=== PATIENT | female | born 1980 | race American Indian/Alaskan Native ===

== ENCOUNTER 2020-01-25 21:40 | Emergency (ER) | payer SELFPAY ==
[2020-01-25 22:10] VITALS: BP 110/62
--- NOTE | 2020-01-25 22:36 | XRay Report ---
CHEST 2 VIEWS INDICATION / CLINICAL INFORMATION: right chestpain. - COMPARISON: None available. FINDINGS: SUPPORT DEVICES: None. HEART / MEDIASTINUM: No significant abnormality. LUNGS / PLEURA: No significant pulmonary or pleural abnormality. No pneumothorax. ADDITIONAL FINDINGS: No significant additional findings. IMPRESSION: 1. No acute findings. Signer Name: Sunday Gillespie MD Signed: 01/25/2020 10:32 PM Workstation Name: [id number]
--- NOTE | 2020-01-26 00:57 | Emergency Department Report ---
- General Chief Complaint: Upper Respiratory Infection Stated Complaint: POSS LUNG INFECTION Time Seen by Provider: 01/25/20 23:56 Source: patient Mode of arrival: Ambulatory Limitations: No Limitations - History of Present Illness Initial Comments: 39-year-old -[place] female smoker Complaint: cough, rhinorrhea -: week(s) (2) Severity: mild, moderate Quality: dull, aching Consistency: constant Worsens With: nothing Associated Symptoms: cough. denies: nausea, confusion, right sweats, weight loss, ear pain - Related Data Previous Rx's Medication Instructions Recorded Last Taken Type Albuterol Mdi (or & Nicu Only) 2 puff IH QID PRN #1 inhalation 01/26/20 Unknown Rx [ProAir HFA Inhaler] predniSONE [Deltasone] 20 mg PO QDAY #7 tab 01/26/20 Unknown Rx Allergies Allergy/AdvReac Type Severity Reaction Status Date / Time No Known Allergies Allergy Unverified 01/25/20 22:10 ED Review of Systems ROS: Stated complaint: POSS LUNG INFECTION Other details as noted in HPI Comment: All other systems reviewed and negative ED Past Medical Hx - Past Medical History Previous Medical History?: Yes Hx Asthma: Yes Additional medical history: Eczema, Bronchitis - Surgical History Past Surgical History?: Yes Additional Surgical History: Hernia Repair - Social History Smoking Status: Current Every Day Smoker Substance Use Type: None - Medications Home Medications: Home Medications Medication Instructions Recorded Confirmed Last Taken Type Albuterol Mdi (or & Nicu Only) 2 puff IH QID PRN #1 inhalation 01/26/20 Unknown Rx [ProAir HFA Inhaler] predniSONE [Deltasone] 20 mg PO QDAY #7 tab 01/26/20 Unknown Rx ED Physical Exam - General Limitations: No Limitations General appearance: alert, in no apparent distress - Head Head exam: Present: atraumatic, normocephalic - Eye Eye exam: Present: normal appearance, PERRL, EOMI - ENT ENT exam: Present: mucous membranes moist - Neck Neck exam: Present: normal inspection - Respiratory Respiratory exam: Present: normal lung sounds bilaterally, rhonchi. Absent: respiratory distress, wheezes, rales, chest wall tenderness, accessory muscle use - Cardiovascular Cardiovascular Exam: Present: regular rate, normal rhythm. Absent: systolic murmur, diastolic murmur, rubs, gallop - GI/Abdominal GI/Abdominal exam: Present: soft, normal bowel sounds. Absent: distended, guarding, rebound, hypoactive bowel sounds, hernia - Extremities Exam Extremities exam: Present: normal inspection - Back Exam Back exam: Present: normal inspection - Neurological Exam Neurological exam: Present: alert, oriented X3 - Psychiatric Psychiatric exam: Present: normal affect, normal mood - Skin Skin exam: Present: warm, dry, intact, normal color. Absent: rash ED Course Vital Signs 01/25/20 22:02 Temperature 98.8 F Pulse Rate 72 Respiratory 18 Rate Blood Pressure 110/62 O2 Sat by Pulse 100 Oximetry ED Medical Decision Making - Radiology Data Radiology results: report reviewed [facility] [address] [place] [address] XRay Report Signed Patient: JESSICA BARRAZA MR#: [id number] 24 : 1980 Acct:[id number] Age/Sex: 39 / F ADM Date: 01/25/20 Loc: ED Attending Dr: Ordering Physician: ED MD MANNIE Date of Service: 01/25/20 Procedure(s): XR chest routine 2V Accession Number(s): [id number] cc: ED MD MANNIE Fluoro Time In Minutes: CHEST 2 VIEWS INDICATION / CLINICAL INFORMATION: right chestpain. - COMPARISON: None available. FINDINGS: SUPPORT DEVICES: None. HEART / MEDIASTINUM: No significant abnormality. LUNGS / PLEURA: No significant pulmonary or pleural abnormality. No pneumothorax. ADDITIONAL FINDINGS: No significant additional findings. IMPRESSION: 1. No acute findings. Signer Name: Sunday Gillespie MD Signed: 01/25/2020 10:32 PM Workstation Name: [id number] Transcribed By: TL Dictated By: Sunday Gillespie MD Electronically Authenticated By: Sunday Gillespie MD Signed Date/Time: 01/25/202231 DD/ 30 TD/TT: - Medical Decision Making This patient presents with acute cough, most consistent with bronchitis. Differential diagnosis includes bronchitis, hyperreactive airway disease, pneumonia. Presentation not consistent with acute bacterial pneumonia, influenza, asthma, transient airway hyperresponsiveness. Presentation not consistent with chronic causes of cough (including GERD, asthma, postnasal discharge, medication side effect, CHF, lung cancer or mass). Patient maintains normal saturation with ambulation Plan: Normal CXR, supportive care, reassess Critical care attestation.: If time is entered above; I have spent that time in minutes in the direct care of this critically ill patient, excluding procedure time. ED Disposition Clinical Impression: Bronchitis Disposition: DC-01 TO HOME OR SELFCARE Is pt being admited?: No Does the pt Need Aspirin: No Condition: Stable Instructions: Acute Bronchitis (ED) Prescriptions: predniSONE [Deltasone] 20 mg PO QDAY #7 tab Albuterol Mdi (or & Nicu Only) [ProAir HFA Inhaler] 2 puff IH QID PRN #1 inhalation PRN Reason: Shortness Of Breath Referrals: PRIMARY CARE, [Primary Care Provider] - 3-5 Days [facility] [Provider Group] - 3-5 Days
== END 2020-01-26 01:20 | disposition home or self-care (01) ==
LOC: ED 21:40
DX: J40 Bronchitis, not specified as acute or chronic (principal); F17.200 Nicotine dependence, unspecified, uncomplicated; Z98.890 Other specified postprocedural states; Z79.899 Other long term (current) drug therapy
CPT/HCPCS: 71046